=== PATIENT | male | born 1980 | race Two or more races ===

== ENCOUNTER → 2019-10-14 | Outpatient (CLI) | payer OTHER ==
[2019-10-14 17:49] LABS: ALBUMIN 4.9 g/dL (3.4-5.0); ALBUMIN/GLOBULIN RATIO 1.4 (1.0-1.7); GFR 84.5; POTASSIUM 4.6 mmol/L (3.5-5.1); TOTAL BILIRUBIN 1.4 mg/dL (0.2-1.0); TOTAL PROTEIN 8.3 g/dL (6.4-8.2)
== END | disposition home or self-care (01) ==
LOC: SPEC 16:45 → EEVIPCON 16:45
PROVIDERS: ATTEND Family Medicine
DX: F20.0 Paranoid schizophrenia (principal)
CPT/HCPCS: 36415; 80053